=== PATIENT | female | born 1990 | race American Indian/Alaskan Native ===

== ENCOUNTER 2017-05-20 13:43 | Emergency (ER) | payer MEDICAID ==
[2017-05-20 14:27] VITALS: BP 119/65
[2017-05-20 16:15] LABS: HCG Qualitative,Urine Negative (Negative)
[2017-05-20 16:23] LABS: Bacteria,Urine 1+ /HPF (Negative); Bilirubin,Urine NEG (Negative); Blood,Urine NEG (Negative); Color,Urine Yellow (Yellow); Hyaline Casts,Urine 2 /LPF; Mucus,Urine 3+ /HPF; Nitrite,Urine NEG (Negative)
--- NOTE | 2017-05-21 00:46 | Emergency Department Report ---
ED Female HPI - General Chief complaint: Urogenital-Female Stated complaint: FEMALE PROBLEMS Time Seen by Provider: 05/21/17 00:22 Source: patient Mode of arrival: Ambulatory Limitations: No Limitations - History of Present Illness Initial comments: This is a 26 y.o. female presents with vaginal discharge and foul odor for 3 weeks. Admits to unprotected intercourse and history of trichimonas vaginosis. States this feels like trichimonas. States boyfriend is here with the same symptoms. States she was given trichimonas before from boyfriend and asked him to come in to be treated as well. Denies abdominal and low back pain. MD Complaint: vaginal discharge (white discharge with foul odor), possible STD -: week(s) (3) Location: suprapubic Radiation: non-radiating Severity: moderate Severity scale (0 -10): 8 Quality: cramping, burning Consistency: intermittent Improves with: none Worsens with: intercourse Are you Now?: No Associated Symptoms: vaginal discharge. denies: vaginal bleeding, abdominal pain, nausea/vomiting, fever/chills, headaches, loss of appetite, dysuria, hematuria, rash, seizure, shortness of breath, syncope, weakness - Related Data Sexually active: Yes Allergies Allergy/AdvReac Type Severity Reaction Status Date / Time No Known Allergies Allergy Unverified 05/20/17 14:23 ED Review of Systems ROS: Stated complaint: FEMALE PROBLEMS Other details as noted in HPI Constitutional: denies: chills, fever Respiratory: denies: cough, shortness of breath, wheezing Cardiovascular: denies: chest pain, palpitations Gastrointestinal: denies: abdominal pain, nausea, diarrhea Genitourinary: as per HPI, discharge (white with foul smell). denies: frequency , hematuria, abnormal menses, dyspareunia Musculoskeletal: denies: back pain, joint swelling, arthralgia ED Past Medical Hx - Past Medical History Previous Medical History?: Yes Additional medical history: trichimonis vaginosis, Scoliosis, Vaginal delivery x 1 - Surgical History Past Surgical History?: Yes Additional Surgical History: Back surgery - Social History Smoking Status: Current Every Day Smoker Substance Use Type: Alcohol, Marijuana ED Physical Exam - General Limitations: No Limitations General appearance: alert, in no apparent distress - Respiratory Respiratory exam: Present: normal lung sounds bilaterally. Absent: respiratory distress - Cardiovascular Cardiovascular Exam: Present: regular rate, normal rhythm. Absent: systolic murmur, diastolic murmur, rubs, gallop - GI/Abdominal GI/Abdominal exam: Present: soft, normal bowel sounds - Back Exam Back exam: Present: normal inspection - Neurological Exam Neurological exam: Present: alert, oriented X3 ED Course Vital Signs 05/20/17 14:23 Temperature 98.1 F Pulse Rate 57 L Respiratory 16 Rate Blood Pressure 119/65 O2 Sat by Pulse 100 Oximetry ED Medical Decision Making - Medical Decision Making This is a 26 y.o. female with vaginal discharge with foul odor for 3 weeks. Denies abdominal pain and low back pain. History of trichimonas vaginosis and states this feel the same. Denies taking anything OTC for symptoms. Admits to recent exposure. UA elevated WBC and HCG negative. Empirically treated for STD Exposure. Given flagyl, rocephin, and azithromycin. F/U with Health Department for STD screening. Critical care attestation.: If time is entered above; I have spent that time in minutes in the direct care of this critically ill patient, excluding procedure time. ED Disposition Clinical Impression: Exposure to sexually transmitted disease (STD) Disposition: -01 TO HOME OR SELFCARE Is pt being admited?: No Does the pt Need Aspirin: No Condition: Stable Instructions: Safe Sex (ED), Sexually Transmitted Diseases (ED), Trichomoniasis (ED) Additional Instructions: Safe sex practices encouraged. Follow up with Primary Care Provider or Health Department. Referrals: [facility] [Outside] - 3-5 Days [facility] [Outside] - 3-5 Days [facility] [Outside] - 3-5 Days [facility] [Outside] - 3-5 Days Forms: Work/School Release Form(ED) Time of Disposition: 00:56 Print Language: ROMANSH
[2017-05-21] MEDS ORDERED: FLAGYL PO ONE (00:57)
[2017-05-21] MEDS ORDERED: ROCEPHIN IM ONE (00:57)
[2017-05-21] MEDS ORDERED: ZITHROMAX PO ONE (00:57)
[2017-05-21] MEDS ORDERED: XYLOCAINE 1% MPF 5 mL INFILTRATI ONE (00:57)
== END 2017-05-21 01:40 | disposition home or self-care (01) ==
LOC: ED 13:43
DX: N89.8 Other specified noninflammatory disorders of vagina (principal); Z20.2 Contact with and (suspected) exposure to infections with a predominantly sexual mode of transmission; F17.200 Nicotine dependence, unspecified, uncomplicated; F12.10 Cannabis abuse, uncomplicated
CPT/HCPCS: 81001; 81025; 96372; 99283; J0696

== ENCOUNTER 2017-12-18 06:47 | Emergency (ER) | payer SELFPAY ==
[2017-12-18 07:11] VITALS: BP 112/71
--- NOTE | 2017-12-18 08:21 | Emergency Department Report ---
Abscess Boil HPI - HPI Chief Complaint: Urogenital-Female Stated Complaint: LT BREAST PAIN Time Seen by Provider: 12/18/17 07:34 Duration: 3 Days Severity: Moderate History: Yes Pain (left nipple), Yes Purulent Drainage (left nipple), Yes Previous History (thigh), No Fever, No Numbness, No Foreign Body, No Insect Bite HPI: This is a 27-year-old female here report that she has been having left nipple pain for one week she reports that she that similar incident on her left side. She reports that she had a nipple piercing in which she had taken out in the scarred over now. She says she is having some swelling. She said the pain is 9 out of 10 and it has a chin and has a repaired right vein. Denies any nausea or vomiting, fever or chills or cough. Denies any personal history of breast cancer family history of breast cancer. Denies any personal history of cervical or ovarian cancer or family history of cervical or ovarian cancer. Patient does smoke. Pain is worse with touch and no alleviating factors. Home Medications: Previous Rx's Medication Instructions Recorded Last Taken Type Ibuprofen [Motrin] 600 mg PO Q8H PRN #12 tablet 12/18/17 Unknown Rx Sulfamethoxazole/Trimethoprim 1 each PO BID 10 Days #20 tablet 12/18/17 Unknown Rx [Bactrim DS TAB] Allergies/Adverse Reactions: Allergies Allergy/AdvReac Type Severity Reaction Status Date / Time Gonzales And Derivatives Allergy Rash Verified 12/18/17 07:08 ED Review of Systems ROS: Stated complaint: LT BREAST PAIN Other details as noted in HPI Constitutional: denies: chills, fever Eyes: denies: eye discharge ENT: denies: congestion Respiratory: denies: cough, shortness of breath, SOB with exertion, SOB at rest , stridor, wheezing Cardiovascular: denies: chest pain, palpitations, edema, syncope Gastrointestinal: denies: abdominal pain, nausea, diarrhea Genitourinary: denies: urgency, dysuria, hematuria, discharge Musculoskeletal: denies: back pain, joint swelling, arthralgia, myalgia Skin: rash, pruritus (left nipple), other (left nipple pain, swelling and drainage). denies: lesions Neurological: weakness. denies: headache ED Past Medical Hx - Past Medical History Previous Medical History?: Yes Additional medical history: trichimonis vaginosis, Scoliosis, Vaginal delivery x 1 - Surgical History Past Surgical History?: Yes Additional Surgical History: Back surgery - Family History Family history: hypertension - Social History Smoking Status: Former Smoker Substance Use Type: None - Medications Home Medications: Home Medications Medication Instructions Recorded Confirmed Last Taken Type Ibuprofen [Motrin] 600 mg PO Q8H PRN #12 tablet 12/18/17 Unknown Rx Sulfamethoxazole/Trimethoprim 1 each PO BID 10 Days #20 tablet 12/18/17 Unknown Rx [Bactrim DS TAB] ED Abscess Boil Physical Exam - Exam General: Vital signs noted. No distress. Alert and acting appropriately. This is a 27-year-old female well-nourished well-developed in no acute distress. Front/Back of Body, Lg (Color): 1 - Patient with left nipple tender to palpate. No discharge is noted when squeezing the nipples. No chest deformity, asymmetry. Normal contours. No nodules, masses, tenderness, or axillary adenopathy. No nipple discharge. Left side: Positive nipple tenderness and no abnormality noted to [place]. Mild swelling to left nipple with mild erythema and mild streaking in the left outer breast. No mass felt on breast exam. No fluctuance or indurated area noted. Exam: Yes Tenderness (left nipple), Yes Surrounding Cellulites/Erythema (mild cellulitis without any induration or fluctuance), Yes Normal Neurologic Exam ( alert and oriented 3, normal gait), Yes Normal Circulation (No cce. + 2 pulses in all extremities, no neurovascular compromise), No Fluctuance, No Lymphangitis , No Heart Murmur (S1, S2. Regular rate and rhythm) I & D Note - I & D Note I & D Note: Incision and drainage procedure. No procedure done due to mild cellulitis and no induration or fluctuance. There is nothing to incision and drain. ED Course Vital Signs 12/18/17 07:08 Temperature 98.6 F Pulse Rate 66 Respiratory 4 L Rate Blood Pressure 112/71 O2 Sat by Pulse 99 Oximetry Vital Signs 12/18/17 12/18/17 07:08 08:36 Temperature 98.6 F Pulse Rate 66 Respiratory 4 L 18 Rate Blood Pressure 112/71 O2 Sat by Pulse 99 Oximetry - Reevaluation(s) Reevaluation #1: 12/18/17 08:36 Patient started on Bactrim DS and Motrin 800 mg for cellulitis and for left breast pain. Critical care attestation.: If time is entered above; I have spent that time in minutes in the direct care of this critically ill patient, excluding procedure time. ED Medical Decision Making - Medical Decision Making This is a 27-year-old female here report left nipple swollen, red and tender to palpate with some drainage. She is here to be evaluated Patient was seen and evaluated by myself and physical exam is normal except she has tenderness to palpate of the left nipple with scarring from nipple ring. Minimal erythema with mild streaking in but no fluctuance or induration. No discharge noted from nipple and mild swelling noted. I discussed the patient diagnosis and treatment plan. She was given Motrin which managed her pain and emergency room 800 mg by mouth and started on Bactrim DS one tablet for cellulitis. Patient does not have a primary care Dr. so i discussed with her that she needs to follow up with [facility] and primary care between tomorrow and Friday and that she will need to have a mammogram even though her risk factor is low for breast cancer. Patient says she just recently stopped smoking as I encourage her to refrain from smoking as this can decrease healing. She voiced understanding. Patient discharged home with Bactrim to treat cellulitis and Motrin to treat breast pain. Vital signs are stable she is afebrile and she is in no pain at present. ED Disposition Clinical Impression: Cellulitis of left breast, Breast pain Disposition: - TO HOME OR SELFCARE Is pt being admited?: No Does the pt Need Aspirin: No Condition: Stable Instructions: Cellulitis (ED), Mammogram (ED), How to Stop Smoking (ED) Additional Instructions: Please follow-up with some [facility] and primary care as discussed. See discharge instruction and mammogram as I think he will need to have a mammogram and some [facility] can refer you for outpatient mammogram as needed Keep warm compresses to affected area 3-4 times a day for 15 minutes at a time to facilitate drainage if there are any. Take antibiotic as instructed Motrin as her pain but please do not take on an empty stomach as this medication can cause upset stomach. refrain from smoking as the skin decrease healing Referrals: PRIMARY CARE, [Primary Care Provider] - 12/23/[address] [facility] [Outside] - 12/23/17 Forms: Work/School Release Form(ED)
[2017-12-18] MEDS ORDERED: MOTRIN PO ONE (08:30)
[2017-12-18] MEDS ORDERED: BACTRIM DS PO ONE (08:30)
== END 2017-12-18 08:59 | disposition home or self-care (01) ==
LOC: ED 06:47
DX: N61.0 Mastitis without abscess (principal); Z87.891 Personal history of nicotine dependence
CPT/HCPCS: 99282

== ENCOUNTER 2018-11-25 18:47 | Emergency (ER) | payer SELFPAY ==
[2018-11-25 19:49] VITALS: BP 110/64
--- NOTE | 2018-11-25 21:53 | Emergency Department Report ---
ED Female HPI - General Chief complaint: Urogenital-Female Stated complaint: ABD PAIN/BURNING WHEN URINATING Time Seen by Provider: 11/25/18 21:20 Source: patient Mode of arrival: Ambulatory Limitations: No Limitations - History of Present Illness Initial comments: Patient is a A1 28-year-old -B[place] female with no past medical history who presents to the ED accompanied acute onset persistent suprapubic pressure and pain, dysuria, urinary frequency and urgency, although there was urine and low back pain for the last 2 weeks. Patient denies vaginal bleeding, fever, chills, nausea, vomiting, diarrhea, dizziness, vaginal discharge, cough, chest pain or shortness of breath. MD Complaint: dysuria, pelvic pain, other (Urinary urgency and frequency; suprapubic pressure) -: Sudden, week(s) (2) Location: suprapubic Radiation: non-radiating Severity: moderate Severity scale (0 -10): 5 Quality: cramping, dull, burning Consistency: constant Improves with: none Worsens with: urination Are you Now?: No Last Menstrual Period: 11/19/18 EDC: 08/26/19 Associated Symptoms: denies other symptoms, abdominal pain, dysuria. denies: vaginal discharge, vaginal bleeding, nausea/vomiting, fever/chills, headaches, loss of appetite, hematuria, rash, seizure, shortness of breath, syncope, weakness - Related Data Sexually active: Yes : 2 Para: 1 A: 1 Previous Rx's Medication Instructions Recorded Last Taken Type Ibuprofen [Motrin 600 MG tab] 600 mg PO Q8H PRN #20 tablet 11/25/18 Unknown Rx Phenazopyridine [Pyridium] 200 mg PO Q8H PRN #15 tab 11/25/18 Unknown Rx Sulfamethoxazole/Trimethoprim 1 each PO BID 10 Days #20 tablet 11/25/18 Unknown Rx [Bactrim DS TAB] Allergies Allergy/AdvReac Type Severity Reaction Status Date / Time Morgan And Derivatives Allergy Rash Verified 12/18/17 07:08 ED Review of Systems ROS: Stated complaint: ABD PAIN/BURNING WHEN URINATING Other details as noted in HPI Constitutional: denies: chills, fever Eyes: denies: eye pain, eye discharge, vision change ENT: denies: ear pain, throat pain Respiratory: denies: cough, shortness of breath, wheezing Cardiovascular: denies: chest pain, palpitations Endocrine: no symptoms reported Gastrointestinal: abdominal pain (suprapubic). denies: nausea, vomiting, diarrhea, constipation, hematemesis Genitourinary: as per HPI, urgency, dysuria, frequency, discharge Musculoskeletal: denies: back pain, joint swelling, arthralgia Skin: denies: rash, lesions, change in color, change in hair/nails, pruritus Neurological: denies: headache, weakness, paresthesias Psychiatric: denies: anxiety, depression Hematological/Lymphatic: denies: easy bleeding, easy bruising ED Past Medical Hx - Past Medical History Previous Medical History?: Yes Additional medical history: trichimonis vaginosis, Scoliosis, Vaginal delivery x 1 - Surgical History Past Surgical History?: Yes Additional Surgical History: Back surgery - Social History Smoking Status: Current Every Day Smoker Substance Use Type: Alcohol - Medications Home Medications: Home Medications Medication Instructions Recorded Confirmed Last Taken Type Ibuprofen [Motrin 600 MG tab] 600 mg PO Q8H PRN #20 tablet 11/25/18 Unknown Rx Phenazopyridine [Pyridium] 200 mg PO Q8H PRN #15 tab 11/25/18 Unknown Rx Sulfamethoxazole/Trimethoprim 1 each PO BID 10 Days #20 tablet 11/25/18 Unknown Rx [Bactrim DS TAB] ED Physical Exam - General Limitations: No Limitations General appearance: alert, in no apparent distress - Head Head exam: Present: atraumatic, normocephalic, normal inspection - Eye Eye exam: Present: normal appearance, PERRL, EOMI. Absent: scleral icterus, conjunctival injection, nystagmus Pupils: Present: normal accommodation - ENT ENT exam: Present: normal exam, normal orophraynx, mucous membranes moist, TM's normal bilaterally, normal external ear exam - Neck Neck exam: Present: normal inspection, full ROM - Respiratory Respiratory exam: Present: normal lung sounds bilaterally. Absent: respiratory distress, wheezes, rales, stridor, chest wall tenderness - Cardiovascular Cardiovascular Exam: Present: regular rate, normal rhythm, normal heart sounds. Absent: systolic murmur, diastolic murmur, rubs, gallop - GI/Abdominal GI/Abdominal exam: Present: soft, normal bowel sounds. Absent: tenderness, rebound, hyperactive bowel sounds, hypoactive bowel sounds, organomegaly, mass - Rectal Rectal exam: Present: deferred - Extremities Exam Extremities exam: Present: normal inspection, full ROM, normal capillary refill. Absent: tenderness, pedal edema, joint swelling - Back Exam Back exam: Present: normal inspection, full ROM. Absent: tenderness, CVA tenderness (R), CVA tenderness (L), muscle spasm, paraspinal tenderness, vertebral tenderness - Neurological Exam Neurological exam: Present: alert, oriented X3, CN II-XII intact, normal gait, reflexes normal - Psychiatric Psychiatric exam: Present: normal affect, normal mood - Skin Skin exam: Present: warm, dry, intact, normal color. Absent: rash ED Course Vital Signs 11/25/18 19:48 Temperature 98.7 F Pulse Rate 68 Respiratory 18 Rate Blood Pressure 110/64 O2 Sat by Pulse 99 Oximetry - Reevaluation(s) Reevaluation #1: This is a 28-year-old female who presented to the ED with dysuria, urinary f requency and urgency and malodorous urine for 2 weeks. Urinalysis was sent to include chlamydia and gonorrhea and urine hCG test. Urinalysis shows a acute urinary tract infection, and urinates she did test is negative. Chlamydia and gonorrhea tests are pending. Patient was treated in the ED with antibiotics and discharged home on antibiotics for urinary tract infection pending the chlamydia and gonorrhea tests. Patient was advised to return to the ED immediately if symptoms get worse. 11/25/18 23:19 ED Medical Decision Making - Medical Decision Making This is a 28-year-old female who presented to the ED with dysuria, urinary frequency and urgency and malodorous urine for 2 weeks. Urinalysis was sent to include chlamydia and gonorrhea and urine hCG test. Urinalysis shows a acute urinary tract infection, and urinates she did test is negative. Chlamydia and gonorrhea tests are pending. Patient was treated in the ED with antibiotics and discharged home on antibiotics for urinary tract infection pending the chlamydia and gonorrhea tests. Patient was advised to return to the ED immediately if symptoms get worse. - Differential Diagnosis acute urinary tract infection; Dysuria, Suprapubic pain Critical care attestation.: If time is entered above; I have spent that time in minutes in the direct care of this critically ill patient, excluding procedure time. ED Disposition Clinical Impression: Acute urinary tract infection, Dysuria Disposition: DC-01 TO HOME OR SELFCARE Is pt being admited?: No Does the pt Need Aspirin: No Condition: Stable Instructions: Urinary Tract Infection in Women (ED), Dysuria (ED) Additional Instructions: Take medications with food, drink plenty of fluids and follow up with your primary care physician in 7-10 days for reevaluation. Return to the ED immediately if symptoms get worse. Prescriptions: Sulfamethoxazole/Trimethoprim [Bactrim DS TAB] 1 each PO BID 10 Days #20 tablet Ibuprofen [Motrin 600 MG tab] 600 mg PO Q8H PRN #20 tablet PRN Reason: Pain Phenazopyridine [Pyridium] 200 mg PO Q8H PRN #15 tab PRN Reason: Spasms Referrals: KINSEY VÁSQUEZ MD [Primary Care Provider] - 3-5 Days Time of Disposition: 22:02 Print Language: TURKISH
[2018-11-25 22:53] LABS: Bacteria,Urine 1+ /HPF (Negative); Bilirubin,Urine NEG (Negative); Blood,Urine NEG (Negative); Color,Urine Yellow (Yellow); Mucus,Urine 3+ /HPF; Protein,Urine <15 mg/dL mg/dL (Negative); Urobilinogen,Urine < 2.0 mg/dL (<2.0)
[2018-11-25 22:56] LABS: HCG Qualitative,Urine Negative (Negative)
[2018-11-25] MEDS ORDERED: LEVAQUIN PO ONE (23:19)
== END 2018-11-25 23:39 | disposition home or self-care (01) ==
LOC: ED 18:47
DX: N39.0 Urinary tract infection, site not specified (principal); F17.200 Nicotine dependence, unspecified, uncomplicated
CPT/HCPCS: 81001; 81025; 99283